=== PATIENT | female | born 1940 | race Caucasian/White ===

== ENCOUNTER 2017-01-29 10:34 | Emergency (ER) | payer OTHER ==
[~2017-01-29] VITALS: Ht 160 cm; Wt 66.7 kg
[2017-01-29 10:51] VITALS: BP_SYST 139
[2017-01-29] MEDS ORDERED: ACETAMINOPHEN 325 MG TABLET PO ONE (11:15)
[2017-01-29 11:25] VITALS: BP_SYST 139
== END 2017-01-29 11:21 | disposition home or self-care (01) ==
LOC: SED 10:34
DX: S80.212A Abrasion, left knee, initial encounter (principal); S80.211A Abrasion, right knee, initial encounter; S50.812A Abrasion of left forearm, initial encounter; S50.811A Abrasion of right forearm, initial encounter; I10 Essential (primary) hypertension; Z88.2 Allergy status to sulfonamides; W10.8XXA Fall (on) (from) other stairs and steps, initial encounter; Y93.01 Activity, walking, marching and hiking; Y92.89 Other specified places as the place of occurrence of the external cause; Y99.8 Other external cause status
CPT/HCPCS: 99283

== ENCOUNTER 2017-05-22 09:25 | Day surgery (SDC) | payer OTHER ==
[2017-05-18 12:11] LABS: BASOPHILS # (AUTO) 0.1 K/uL (0.0-0.2); BASOPHILS % (AUTO) 1.1 % (0.0-2.0); EOSINOPHILS # (AUTO) 0.1 K/uL (0.0-0.4); EOSINOPHILS % (AUTO) 1.6 % (0.0-4.0); HEMATOCRIT 45.2 % (36-48); HEMOGLOBIN 14.7 g/dL (12.0-16.0); LYMPHOCYTES # (AUTO) 1.8 K/uL (1.0-5.5); LYMPHOCYTES % (AUTO) 24.1 % (20.5-51.5); MEAN CORPUSCULAR HEMOGLOBIN 30 pg (27-31); MEAN CORPUSCULAR HGB CONC 33 % (32-36); MEAN CORPUSCULAR VOLUME 91 fL (79.0-98.0); MONOCYTES # (AUTO) 0.5 K/uL (0.0-1.0); MONOCYTES % (AUTO) 6.1 % (1.7-9.3); NEUTROPHILS # (AUTO) 4.9 K/uL (1.8-7.7); NEUTROPHILS % (AUTO) 67.1 % (40.0-70.0); PLATELET COUNT (AUTO) 307 K/uL (130-430); RED BLOOD CELL COUNT(AUTO) 4.98 MIL/uL (4.2-6.2); RED CELL DISTRIBUTION WIDTH 13.6 % (9.0-15.0); WHITE BLOOD COUNT (AUTO) 7.4 K/uL (4.8-10.8)
[2017-05-18 12:32] LABS: ANION GAP 5 (5-15); CALCIUM 10.1 mg/dL (8.4-11.0); CHLORIDE 105 mmol/L (98-107); CREATININE 0.93 mg/dL (0.55-1.30); GLUCOSE 119 mg/dL (70-99); POTASSIUM 4.8 mmol/L (3.5-5.1); SODIUM SERUM 139 mmol/L (136-145); UREA NITROGEN, BLOOD 14 mg/dL (8-21)
[2017-05-18 12:35] LABS: PROTHROMBIN TIME 10.1 SECS (9.5-12.5)
[2017-05-18 12:38] LABS: ALANINE AMINOTRANSFERASE 36 U/L (12-78); ASPARTATE AMINOTRANSFERASE 32 U/L (10-37); TOTAL BILIRUBIN 0.6 mg/dL (0.0-1.0)
[~2017-05-22] VITALS: Ht 162.6 cm; Wt 63.5 kg
[2017-05-22] VITALS (8 sets, daily range): BP systolic 104–130
[2017-05-22] MEDS ORDERED: PROPOFOL 200MG/ 20ML VIAL (DIPRIVAN) IV ONE (13:05)
[2017-05-22] MEDS ORDERED: BUPIVACAINE /EPINEPHRINE/PF 0.5% 30 ML VIAL INJ ONE (13:05)
[2017-05-22] MEDS ORDERED: ePHEDrine sulfate 50 MG/ML VIAL IV ONE (13:05)
[2017-05-22] MEDS ORDERED: ISOSULFAN BLUE 5 ML VIAL (LYMPHAZURIN) INJ ONE (13:05)
[2017-05-22] MEDS ORDERED: SEVOFLURANE 15 MIN GAS INH ONE (13:05)
[2017-05-22] MEDS ORDERED: fentaNYL CITRATE/PF 100 MCG/2 ML AMP IVP ONE (13:05)
[2017-05-22] MEDS ORDERED: MIDAZOLAM HCL 5 MG/5 ML VIAL IVP ONE (13:05)
[2017-05-22] MEDS ORDERED: ONDANSETRON HCL 4 MG/2 ML VIAL IVP ONE (13:05)
[2017-05-22] MEDS ORDERED: NS IRRIG SOLN 1000 ML IR ONE (13:05)
[2017-05-22] MEDS ORDERED: LR 1,000 ML IV.SOLN IV ONE (13:05)
[2017-05-22] MEDS ORDERED: LR 1,000 ML IV SCH (13:55)
[2017-05-22] MEDS ORDERED: METOCLOPRAMIDE HCL 10 MG/2 ML VIAL IVP PRN (14:00)
[2017-05-22] MEDS ORDERED: MORPHINE 4 MG/ML INJ. SYRINGE IVP PRN ×3 (14:00)
[2017-05-22] MEDS ORDERED: MORPHINE 4 MG/ML INJ. SYRINGE ONE (14:51)
[2017-05-22] MEDS ORDERED: ONDANSETRON HCL 4 MG/2 ML VIAL IVP PRN (15:00)
[2017-05-22] MEDS ORDERED: KETOROLAC TROMETHAMINE 15 MG VIAL IVP ONE (15:00)
--- NOTE | 2017-05-22 15:40 | NUR ---
ADMIT NOTE: RECEIVED PATIENT FROM NURSE PATRICIA. PATIENT IS AWAKE, ALERT, AND ORIENTED. NO ACUTE SIGNS OF RESP DISTRESS, NO SOB. BREATHING EVEN AND UNLABORED. IV INTACT AND PATENT, NO REDNESS/SWELLING TO SITE. BED AT LOWEST POSITION, CALL LIGHT IN REACH, SIDE [id number].
--- NOTE | 2017-05-22 16:04 | NUR ---
CONSULTATION PAGED REASON FOR CONSULTATION:MEDICAL MANAGEMENT WAS CONSULT CALLED?:Y PERSON WHO WAS NOTIFIED:HAKAN CONSULTING PHYSICIAN:MARY CHACON CLINICAL PRACTICE CONSULTANT SPECIALTY:INTERNAL MEDICINE CLINICAL PRACTICE CONSULTANT PHONE NUMBER:[phone] REQUESTING PHYSICIAN:JOSE WOODRUFF
[2017-05-22] MEDS: D5/0.45 NS 1,000 ML IV SCH (18:11)
--- NOTE | 2017-05-22 18:35 | NUR ---
CLOSING NOTE: PATIENT ATE DINNER AND TOLERATED WELL. DENIES ABDOMINAL PAIN, NAUSEA AND VOMITING AT THIS TIME. IV INTACT AND PATENT, NO REDNESS/SWELLING TO SITE. SKIN WARM DRY AND COLOR NORMAL FOR ETHNICITY. SURGICAL DRESSING CLEAN DRY AND INTACT. BED AT LOWEST POSITION, CALL LIGHT IN REACH. WILL ENDORSE PLAN OF CARE TO CHARITY GALVEZ.
--- NOTE | 2017-05-22 19:08 | NUR ---
PAGING DR. DUGGAN: PAGING DR. DUGGAN. WAITING CALL BACK.
--- NOTE | 2017-05-22 20:00 | NUR ---
opening note received patient awake sitting up in bed with visitors at bedside. pt is a/ox4. no s/s distress. no c/o pain. dressing to right breast c,d,i. iv to left hand patent and intact. will start ancef as ordered. poc discussed with pt. comm board updated. cane noted. safety precautions in place. pt to call for assist as needed.
[2017-05-22] MEDS: CEFAZOLIN 1 GM IVPB PREMIX 50 ML IV SCH (20:51)
--- NOTE | 2017-05-22 21:00 | NUR ---
ROUNDS Pt resting comfortably at this time. no c/o pain. vs stable. Dr Eason making rounds. aware of pt's medications. Ok not to give bp meds tonight. bp 104/52. med list given to dr Eason. pt on clear liquid diet. would like regular for breakfast. dr eason aware.
--- NOTE | 2017-05-23 | NUR ---
rounds pt resting with eyes closed. appears to be sleeping. no s/s resp distress. iv site patent and intact. will continue to monitor.
[2017-05-23 00:01] VITALS: BP_SYST 108
[2017-05-23 03:00] VITALS: BP_SYST 110
--- NOTE | 2017-05-23 04:00 | NUR ---
rounds pt resting comfortably. appears to be sleeping. will continue to monitor.
[2017-05-23] MEDS: CEFAZOLIN 1 GM IVPB PREMIX 50 ML IV SCH (05:14)
[2017-05-23] MEDS: D5/0.45 NS 1,000 ML IV SCH (05:20)
[2017-05-23 06:22] LABS: BASOPHILS # (AUTO) 0.1 K/uL (0.0-0.2); BASOPHILS % (AUTO) 0.9 % (0.0-2.0); EOSINOPHILS # (AUTO) 0.2 K/uL (0.0-0.4); EOSINOPHILS % (AUTO) 2.6 % (0.0-4.0); HEMATOCRIT 39.9 % (36-48); HEMOGLOBIN 13.2 g/dL (12.0-16.0); LYMPHOCYTES # (AUTO) 1.4 K/uL (1.0-5.5); LYMPHOCYTES % (AUTO) 18.9 % (20.5-51.5); MEAN CORPUSCULAR HEMOGLOBIN 30 pg (27-31); MEAN CORPUSCULAR HGB CONC 33 % (32-36); MEAN CORPUSCULAR VOLUME 92 fL (79.0-98.0); MONOCYTES # (AUTO) 0.5 K/uL (0.0-1.0); MONOCYTES % (AUTO) 6.8 % (1.7-9.3); NEUTROPHILS # (AUTO) 5.4 K/uL (1.8-7.7); NEUTROPHILS % (AUTO) 70.8 % (40.0-70.0); PLATELET COUNT (AUTO) 236 K/uL (130-430); RED BLOOD CELL COUNT(AUTO) 4.34 MIL/uL (4.2-6.2); RED CELL DISTRIBUTION WIDTH 13.8 % (9.0-15.0); WHITE BLOOD COUNT (AUTO) 7.6 K/uL (4.8-10.8)
[2017-05-23 06:46] LABS: ALANINE AMINOTRANSFERASE 25 U/L (12-78); ALBUMIN 3.2 g/dL (3.4-4.8); ANION GAP 4 (5-15); ASPARTATE AMINOTRANSFERASE 17 U/L (10-37); CALCIUM 8.9 mg/dL (8.4-11.0); CHLORIDE 110 mmol/L (98-107); CREATININE 0.86 mg/dL (0.55-1.30); GLUCOSE 101 mg/dL (70-99); POTASSIUM 4.2 mmol/L (3.5-5.1); SODIUM SERUM 141 mmol/L (136-145); TOTAL BILIRUBIN 0.6 mg/dL (0.0-1.0); UREA NITROGEN, BLOOD 11 mg/dL (8-21)
--- NOTE | 2017-05-23 06:46 | NUR ---
BLOOD SUGAR 100
--- NOTE | 2017-05-23 07:20 | NUR ---
Initial notes: patient on bed awake, alert and oriented. Stable. Safety measure in placed. Call light within reach. Report received from bedside.
[2017-05-23 08:00] VITALS: BP_SYST 122
--- NOTE | 2017-05-23 08:54 | NUR ---
rounds: patient on bed resting. no distress noted. son at bedside.
--- NOTE | 2017-05-23 10:18 | NUR ---
rounds: patient on bed sleeping. no distress noted.
[2017-05-23 10:36] VITALS: BP_SYST 106
--- NOTE | 2017-05-23 11:25 | NUR ---
Nicci rounds: Dr. Cheney seen the pt and changed the dressing. Suture intact, no bleeding.
[2017-05-23 11:37] VITALS: BP_SYST 106
[2017-05-23] MEDS ORDERED: OXYC-130 PO (11:41)
[2017-05-23] MEDS ORDERED: DOCU-144 PO (11:42)
--- NOTE | 2017-05-23 13:00 | NUR ---
rounds: patient resting and waiting for her daughter to pick her up.
--- NOTE | 2017-05-23 14:38 | NUR ---
D/C Patient Patient given medication reconciliation form and D/C instructions. Exit Care provided. Patient verbalized understanding. MD discussed with patient the results and treatment provided. Ambulatory with steady gait for discharge to home. Patient in stable condition, ID band removed. IV catheter removed, intact and dressing applied, no active bleeding. Rx of percocet 5/325 and colace given. Patient educated on pain management. All belongings sent with patient.
[2017-05-23 15:45] VITALS: BP_SYST 110
== END 2017-05-23 14:30 | disposition home or self-care (01) ==
LOC: SDS 09:25 → SMU 09:26 → SDS 05-23 14:30
PROVIDERS: ATTEND Surgery
DX: C50.911 Malignant neoplasm of unspecified site of right female breast (principal); D36.0 Benign neoplasm of lymph nodes; I25.10 Atherosclerotic heart disease of native coronary artery without angina pectoris; I21.3 ST elevation (STEMI) myocardial infarction of unspecified site; I11.0 Hypertensive heart disease with heart failure; E78.00 Pure hypercholesterolemia, unspecified; M19.90 Unspecified osteoarthritis, unspecified site; Z88.8 Allergy status to other drugs, medicaments and biological substances
CPT/HCPCS: 19281; 19301; 36415 ×2; 38525; 71020; 76098; 78195; 80053 ×2; 82962; 85025 ×2; 85610; 85730; 87081; 88307; 88333; 88342; A9541; J0690; J1885; J2250; J2270; J2405; J2704; J3010; J3490; J7120; Q9968